=== PATIENT | female | born 1970 | race Caucasian/White ===

== ENCOUNTER 2017-10-15 07:38 | Emergency (ER) | payer OTHER ==
[~2017-10-15] VITALS: Ht 157.5 cm; Wt 72.6 kg
[~2017-10-15 07:38] MED LIST: NOHOMEMEDICATIONS
[2017-10-15] MEDS ORDERED: ACCUTANE PO (08:01)
[2017-10-15 08:39] LABS: ABSOLUTE EOSINOPHILS 0.3 thou/uL (0.0-0.7); ABSOLUTE LYMPHOCYTES 0.9 thou/uL (0.8-5.3); ABSOLUTE MONOCYTES 0.2 thou/uL (0.0-1.2); ABSOLUTE NEUTROPHILS 3.3 thou/uL (1.6-8.1); BASOPHILS 0.8 %; EOSINOPHILS 6.2 %; HEMATOCRIT 36.2 % (37.0-47.0); HEMOGLOBIN 12.3 gm/dL (12.0-15.0); LYMPHOCYTES 18.6 %; MCH 29.4 pg (26.0-34.0); MCHC 33.9 g/dL (28.0-37.0); MCV 86.8 fL (80.0-100.0); MPV 7.5 fl. (7.2-11.1); NUCLEATED RBCS 0 /100WBC; PLATELET COUNT* 210 thou/uL (150-400); POLYS 69.4 %; RBC 4.17 mil/uL (4.20-5.00); WBC 4.8 thou/uL (4.0-11.0)
[2017-10-15 08:47] LABS: CALCIUM 8.6 mg/dL (8.5-10.1); CREATININE 0.7 mg/dL (0.6-1.3); POTASSIUM 3.5 mmol/L (3.5-5.1)
[2017-10-15 08:59] LABS: ALBUMIN 3.5 g/dL (3.4-5.0); TOTAL BILIRUBIN 0.6 mg/dL (<0.1-1.0); TOTAL PROTEIN 7.2 g/dL (6.4-8.2)
[2017-10-15 10:05] VITALS: BP 109/66
== END 2017-10-15 10:05 | disposition home or self-care (01) ==
LOC: M.ERS 07:38
PROVIDERS: Emergency Medicine Emergency Medical Services
DX: K59.00 Constipation, unspecified (principal); Z88.1 Allergy status to other antibiotic agents

== ENCOUNTER → 2018-02-27 | Outpatient (CLI) | payer OTHER ==
[~2018-02-27] MED LIST changes: +ACCUTANE PO
== END ==
LOC: M.ULTRA 15:49
DX: R22.41 Localized swelling, mass and lump, right lower limb (principal)

== ENCOUNTER → 2018-03-14 | Outpatient (CLI) | payer OTHER | LOC: M.RAD 12:03 | DX: Z12.31 Encounter for screening mammogram for malignant neoplasm of breast (principal) ==